=== PATIENT | female | born 1985 | race Hispanic/Latino ===

== ENCOUNTER 2017-07-07 20:22 | Emergency (ER) | payer BC, SELFPAY ==
[~2017-07-07 20:22] MED LIST: ISOVUE-370 76%-LOCM 1 ML ONE
[2017-07-07 21:06] LABS: #Basophils 0.1 thou/uL (0.0-0.2); #Eosinphils 0.1 thou/uL (0.0-0.7); #Lymphocytes 2.5 thou/uL (1.20-3.40); #Monocytes 0.7 thou/uL (0.11-0.59); #Neutrophils 5.2 thou/uL (1.40-6.50); %Basophils 0.7 % (0.0-1.0); %Eosinophils 1.5 % (0.0-10.0); %Monocytes 8.2 % (0.0-10.0); %Neutrophils 60.5 % (42.0-75.0); Hemoglobin 12.9 g/dL (12.0-16.0); Mean Corpuscular HGB CONC 33.6 g/dL (32.0-36.0); Mean Corpuscular Hemoglobin 29.3 pg (27.0-31.0); Mean Corpuscular Volume 87.1 fl (81.0-99.0); Mean Platelet Volume 7.1 fL (7.4-10.4); Platelet Count 347 thou/uL (130-400); RBC Distribution Width 11.6 % (11.5-14.5); White Blood Cell (WBC) Count 8.6 thou/uL (4.8-10.8)
[2017-07-07 21:08] LABS: Bilirubin Negative (Negative); Blood, Urine Large (Negative); Clarity CLOUDY (Clear); Glucose, Urine (Dipstick) Negative (Negative); Leukocyte Negative (Negative); Nitrite Negative (Negative); Protein, Urine (Dipstick) Trace mg/dL (Neg-Trace); Specific Gravity, Urine 1.014 (1.002-1.036); Urobilinogen 0.2 mg/dL (0.2-1.0)
[2017-07-07 21:10] LABS: Bacteria/HPF None Seen HPF (None Seen); Hyaline Casts/LPF 0-3 HYALINE CAST LPF (0-3 Hyaline); Pathc Cast-AUWi Flag 0.54 (0-2.49); Pregnancy Test - Urine (BHCG) Negative (Negative); Pregu Control Background? CLEAR/WHITE (CLR/WHITE); Pregu Control Bar Appear? YES (CONTROL BAR); RBC/HPF GREATER THAN 50-TNTC HPF (0-3); Specific Gravity 1.014 (1.002-1.036); Squamous Epithelial 0-3 HPF (0-3); WBC/HPF 0-3 HPF (0-3)
[2017-07-07 21:29] LABS: ALT (SGPT) 8 U/L (8-55); AST (SGOT) 12 U/L (5-34); Albumin 4.4 g/dL (3.5-5.0); Alkaline Phosphatase 63 U/L (40-150); Anion Gap 13 mmol/L (10-20); BUN (Urea Nitrogen) 13 mg/dL (7.0-18.7); Bilirubin, Total 0.6 mg/dL (0.2-1.2); Calc. Creatinine Clearance 0 mL/min (70-130); Calcium 9.6 mg/dL (7.8-10.44); Carbon Dioxide 25 mmol/L (22-29); Chloride 104 mmol/L (98-107); Estimated GFR-MDRD 87; Globulin 2.7 g/dL (2.4-3.5); Glucose 121 mg/dL (70-105); Potassium 3.7 mmol/L (3.5-5.1); Protein, Total 7.1 g/dL (6.0-8.3); Sodium 138 mmol/L (136-145)
--- NOTE | 2017-07-07 22:59 | CT ---
CT ABDOMEN AND PELVIS WITH IV CONTRAST: Date: 07-07-17 History: Right flank pain with nausea and vomiting. FINDINGS: There is an asymmetric delayed nephrogram phase of enhancement of the right kidney compared to the le ft kidney with mild to moderate right hydronephrosis and hydroureter. There is a calculus seen in the distal right ureter measuring 5 mm just proximal to the level of the right UVJ. The left kidney is n ormal in appearance and there is no hydronephrosis present. Urinary bladder is incompletely distended on this exam. There is an enhancing mass seen within the medial segment of the left hepatic lobe which measures 3.9 cm x 2.1 cm. There was question of a mass in this region on prior noncontrast CT abdomen on 03-22-10 . This lesion demonstrates what appears to be more homogeneous enhancement and no peripheral disconti nuous nodular enhancement is seen to suggest a hemangioma. No central scar is present to suggest FNH. This could potentially represent a hepatic adenoma. Additional imaging is warranted. The spleen, pancreas, bilateral adrenal glands and abdominal aorta demonstrate a normal CT appearance . The uterus and adnexal structures have a normal CT appearance. The appendix is visualized and normal in caliber. Osseous structures are intact. IMPRESSION: 1. Enhancing mass in the medial segment left hepatic lobe just superior to the level of the gallbladd er fossa. There was suggestion of a mass in this region on prior nonenhanced CT scan in 2009 although the mass on that examination appeared larger in size. This could potentially represent a hepatic nikos noma or possible FNH although definite central scar is not present. While hemangioma is a differentia l consideration, there is no discontinuous peripheral nodular enhancement appreciated. Further evalua tion with MRI abdomen is recommended to characterize this lesion. 2. Partially obstructing distal right ureteral calculus measuring 5 mm. 3. Above findings discussed with Dr. Rubin in the Emergency Department on 07-07-17 at 2147 hours. POS: LUIS ALBERTO
== END 2017-07-07 23:05 | disposition home or self-care (01) ==
LOC: ERS 20:22
DX: N20.0 Calculus of kidney (principal)
CPT/HCPCS: 36415; 51701; 74177; 80053; 81003; 81015; 81025; 83690; 85025; 96360; A4353

== ENCOUNTER 2019-03-22 02:33 | Emergency (ER) | payer BC | END 2019-03-22 03:45 | disposition home or self-care (01) | LOC: ERS 02:33 | DX: F10.129 Alcohol abuse with intoxication, unspecified (principal) | CPT/HCPCS: 99284 ==